=== PATIENT | male | born 1985 | race Caucasian/White ===

== ENCOUNTER 2021-09-15 13:30 | Emergency (ER) | payer MEDICAID ==
[~2021-09-15] VITALS: Ht 167.6 cm; Wt 88.5 kg
[2021-09-15 13:34] VITALS: BP 128/79
--- NOTE | 2021-09-15 13:42 | NUR ---
Billie savage in [facility] - 09/15/21 at 1344 by [email or web address] PT AMB TO BED 11.
--- NOTE | 2021-09-15 14:18 | NUR ---
PT AMBULATED TO BED 8. Patient being evaluated by DR RODRIGUEZ at bedside.
[2021-09-15] MEDS ORDERED: KETOROLAC 60 MG/2 ML VIAL IM ONE (14:20)
--- NOTE | 2021-09-15 14:20 | NUR ---
35YO MALE PT C/O CONSTANT SHARP/TIGHT 10/10 LOWER BACK PAIN. PT STATES SUDDEN ONSET 7AM THIS MORNING. BACK NON TENDER TO TOUCH. PT DENIES N/V/D OR DYSURIA. DENIES SOB OR CHEST PAIN. PT UNABLE TO BEND AT WAIST AND HAS UNSTEADY GAIT. PT DENIES TAKING MEDICATION TO RELIEF PAIN. PT AAOX4 , IN VISIBLE DISTRESS WITH HOLDING ONTO BACK. RESPIRATIONS EVEN AND UNLABORED. HOB POSITIONED PER PT COMFORT, PT LAYING SUPINE POSITION. TARA MIGUELX
[2021-09-15] MEDS ORDERED: ACET-8386 PO (14:59)
[2021-09-15] MEDS ORDERED: IBUP-2213 PO (14:59)
[2021-09-15 15:30] VITALS: BP 138/72
--- NOTE | 2021-09-15 15:37 | NUR ---
Patient discharged with v/s stable. Written and verbal after care instructions FOR ACUTE BACK PAIN given and explained. Patient alert, oriented and verbalized understanding of instructions. Ambulatory with steady gait. All questions addressed prior to discharge. ID band removed. Patient advised to follow up with PMD. Rx of HYDROCODONE AND IBURPOFEN given. Opportunity to ask questions provided and answered.
== END 2021-09-15 15:30 | disposition home or self-care (01) ==
LOC: MED 13:30
DX: M54.50 Low back pain, unspecified (principal); F12.90 Cannabis use, unspecified, uncomplicated; Z90.49 Acquired absence of other specified parts of digestive tract; Z98.890 Other specified postprocedural states; Z79.891 Long term (current) use of opiate analgesic; Z79.1 Long term (current) use of non-steroidal anti-inflammatories (NSAID)
CPT/HCPCS: 81002; 96372; 99283; J1885

== ENCOUNTER 2023-07-17 13:25 | Emergency (ER) | payer MEDICAID ==
[~2023-07-17] VITALS: Ht 172.7 cm; Wt 101.2 kg
[~2023-07-17 13:25] MED LIST: ACET-8905 PO; IBUP-2213 PO
[2023-07-17 13:28] VITALS: BP 124/86; PULSE 94; RESP 17; TEMP 98.6; O2SAT 98
[2023-07-17] MEDS: KETOROLAC 60 MG/2 ML VIAL IM ONE (13:48)
[2023-07-17 14:04] VITALS: BP 125/82; PULSE 83; O2SAT 98
== END 2023-07-17 14:03 | disposition home or self-care (01) ==
LOC: MED 13:25
DX: M54.50 Low back pain, unspecified (principal); Z79.899 Other long term (current) drug therapy
CPT/HCPCS: 96372; 99283; J1885